=== PATIENT | female | born 2000 | race Caucasian/White ===

== ENCOUNTER 2022-10-10 19:28 | Emergency (ER) | payer MEDICAID ==
[~2022-10-10] VITALS: Ht 160 cm; Wt 90.7 kg
[2022-10-10 19:40] VITALS: BP_SYST 138; PULSE 94; RESP 17; TEMP 97.8; O2SAT 99
[2022-10-10] MEDS ORDERED: CORTEARS RIGHT EAR (21:18)
[2022-10-10] MEDS: KETOROLAC TROMETHAMINE 60 MG/2 ML VIAL IM ONE (21:31)
[2022-10-10 21:33] VITALS: BP_SYST 128; PULSE 89; RESP 16; TEMP 97.8; O2SAT 98
== END 2022-10-10 21:33 | disposition home or self-care (01) ==
LOC: SED 19:28
DX: H60.91 Unspecified otitis externa, right ear (principal); H92.01 Otalgia, right ear; Z79.899 Other long term (current) drug therapy
CPT/HCPCS: 99283; 96372; J1885

== ENCOUNTER 2023-06-06 16:14 | Emergency (ER) | payer MEDICAID ==
[~2023-06-06] VITALS: Ht 160 cm; Wt 92.5 kg
[~2023-06-06 16:14] MED LIST: CORTEARS RIGHT EAR
[2023-06-06 16:23] VITALS: BP_SYST 153; PULSE 67; RESP 18; TEMP 98; O2SAT 98
[2023-06-06 18:03] LABS: COVID19 ANTIGEN SOFIA FIA NEGATIVE (NEGATIVE)
[2023-06-06 18:05] LABS: INFLUENZA TYPE A Negative (NEGATIVE); INFLUENZA TYPE B NEGATIVE (NEGATIVE)
[2023-06-06] MEDS ORDERED: ACET-2634 PO (18:38)
[2023-06-06] MEDS ORDERED: IBUP-1969 PO (18:38)
[2023-06-06 19:40] LABS: BASOPHILS # (AUTO) 0.1 K/uL (0.0-0.2); BASOPHILS % (AUTO) 0.8 % (0.0-2.0); EOSINOPHILS # (AUTO) 0.3 K/uL (0.0-0.4); EOSINOPHILS % (AUTO) 3.8 % (0.0-4.0); HEMATOCRIT 35.7 % (36-48); HEMOGLOBIN 11.8 g/dL (12.0-16.0); LYMPHOCYTES # (AUTO) 3.2 K/uL (1.0-5.5); LYMPHOCYTES % (AUTO) 47.1 % (20.5-51.5); MEAN CORPUSCULAR HEMOGLOBIN 26 pg (27-31); MEAN CORPUSCULAR HGB CONC 33 % (32-36); MEAN CORPUSCULAR VOLUME 77 fL (79.0-98.0); MONOCYTES # (AUTO) 0.3 K/uL (0.0-1.0); MONOCYTES % (AUTO) 4.9 % (1.7-9.3); NEUTROPHILS # (AUTO) 2.9 K/uL (1.8-7.7); NEUTROPHILS % (AUTO) 43.4 % (40.0-70.0); PLATELET COUNT (AUTO) 240 K/uL (130-430); RED BLOOD CELL COUNT(AUTO) 4.64 MIL/uL (4.2-6.2); WHITE BLOOD COUNT (AUTO) 6.7 K/uL (4.8-10.8)
[2023-06-06] MEDS: KETOROLAC TROMETHAMINE 30 MG VIAL IM ONE (20:34)
[2023-06-06 20:35] VITALS: BP_SYST 135; PULSE 60; RESP 16; TEMP 98.1; O2SAT 100
== END 2023-06-06 20:35 | disposition home or self-care (01) ==
LOC: SED 16:14
DX: J06.9 Acute upper respiratory infection, unspecified (principal); R51.9 Headache, unspecified; D64.9 Anemia, unspecified; R09.1 Pleurisy; Z20.822 Contact with and (suspected) exposure to COVID-19
CPT/HCPCS: 99285; 71045; 87426; 85025; 36415; 93005; 81025; 96372; 87804 ×2; J1885